=== PATIENT | male | born 1980 | race Two or more races ===

== ENCOUNTER 2024-10-17 00:05 | Emergency (ER) | payer MEDICAID, SELFPAY ==
[2024-10-17 00:20] VITALS: BP 164/91; PULSE 90; RESP 18; TEMP 36.9; O2SAT 96; BMI 25.4
--- NOTE | 2024-10-17 00:54 | PD.EDALCOH ---
ED Alcohol RME/HPI General Chief Complaint: Abdominal Pain Stated Complaint: ABDOMINAL PAIN, HEAVY ALCOHOL INTAKE Time Seen by Provider: 10/17/24 00:46 Arrival date/time: 10/17/24 00:05 44M with history of HTN, DM, and alcohol use presents to ED with 3 days of anxiety, trouble sleeping, and some intermittent ab pain. Limitations: no limitations Related Data Previous Rx's ?Medication ?Instructions ?Recorded blood sugar diagnostic (Accu-Chek #100 ea 06/02/23 Guide test strips) blood-glucose meter (Accu-Chek #1 ea 06/02/23 Guide Glucose Meter) gabapentin 100 mg capsule 100 mg PO QHS #30 caps 06/02/23 metformin 500 mg tablet 500 mg PO BID Diabetes Mellitus 06/09/23 Type 2 #60 tabs lancets 23 gauge (Accu-Chek #200 ea 06/23/23 Safe-T-Pro) losartan 25 mg tablet 25 mg PO QDAY HTN #30 tabs 06/23/23 pantoprazole 40 mg tablet,delayed 40 mg PO QDAY GERD #30 tabs 06/23/23 release (Protonix) Allergies Allergy/AdvReac Type Severity Reaction Status Date / Time No Known Allergies Allergy Verified 06/23/23 10:44 Review of Systems Review of Systems Systems Reviewed: All systems reviewed, normal except as documented Constitutional Constitutional: Reports system reviewed and no additional complaints, except as documented, Denies fever(s) and Denies headache(s) ENT Ears, Nose, Mouth, and Throat: Denies disequilibrium and Denies headache(s) Cardiovascular Cardiovascular: Reports system reviewed and no additional complaints, except as documented, Denies chest pain and Denies dyspnea Respiratory Respiratory: Reports system reviewed and no additional complaints, except as documented, Denies cough and Denies dyspnea Gastrointestinal Gastrointestinal: Reports system reviewed and no additional complaints, except as documented, Reports as per HPI, Reports abdominal pain, Denies nausea and Denies vomiting Neurologic Neurologic: Reports system reviewed and no additional complaints, except as documented, Denies confusion, Denies disequilibrium and Denies headache(s) Psychiatric Psychiatric: Reports as per HPI, Reports anxiety, Denies confusion and Reports other (insomnia) Past Medical History Past Medical History CARDIAC: Negative Congestive Heart Failure RESPIRATORY: Negative Chronic Obstructive Pulmonary Disease (COPD) GENITOURINARY: Negative Renal Disease ENDOCRINE: Negative Diabetes Mellitus Type 1 or Diabetes Mellitus Type 2 Social History SMOKING STATUS: Current some day smoker ED Exam General Limitations: Present no limitations General appearance: Present alert, in no apparent distress and anxious Head Head exam: Present atraumatic Eye Eye exam: Present normal appearance, PERRL and EOMI ENT ENT exam: Present normal exam, normal oropharynx and mucous membranes moist Neck Neck exam: Present normal inspection, full ROM and trachea midline Chest Chest inspection: Present normal inspection and symmetric chest wall rise Respiratory Respiratory exam: Present normal lung sounds bilaterally Cardiovascular Cardiovascular exam: Present regular rate, normal rhythm and normal heart sounds Abdominal Exam Abdominal exam: Present soft and normal bowel sounds Extremities Exam Extremities exam: Present normal inspection and full ROM Back Exam Back exam: Present normal inspection and full ROM Neurological Exam Neurological exam: Present alert, oriented X3 and CN II-XII intact Psychiatric Psychiatric exam: Present normal affect and normal mood Skin Skin exam: Present warm, dry, intact and normal color Course Quality Measures none Orders Category Date Time Status Diazepam [Valium] Med 10/17/24 00:47 Discontinued 10 mg PO X1 ONE Vital Signs Vital signs: Vital Signs Temperature 98.5 F 10/17/24 00:20 Pulse Rate 90 10/17/24 00:20 Respiratory Rate 18 10/17/24 00:20 Blood Pressure 164/91 H 10/17/24 00:20 Pulse Oximetry (%) 96 10/17/24 00:20 Oxygen Delivery Method Room Air 10/17/24 00:20 O2 at 96% on RA and WNLs Discharge Plan Plan Patient Disposition: HOME (Self Care) Disposition Comment: Stable Prescriptions/Referrals Prescriptions/Med Rec: No Action (DME) Accu-Chek Safe-T-Pro 23 gauge misc See Rx Instructions .Route Qty: 200 0RF Rx Instructions: Use As directed to test blood sugar BID or PRN losartan 25 mg tablet 25 mg PO QDAY MDD 25 mg Qty: 30 2RF pantoprazole [Protonix] 40 mg tablet,delayed release (DR/EC) 40 mg PO QDAY MDD 40 mg Qty: 30 1RF gabapentin 100 mg capsule 100 mg PO QHS MDD 100 mg Qty: 30 2RF (DME) blood-glucose meter [Accu-Chek Guide Glucose Meter] Misc See Rx Instructions .Route Qty: 1 0RF Rx Instructions: Test BID or as directed (DME) Accu-Chek Guide test strips Strip See Rx Instructions .Route Qty: 100 5RF Rx Instructions: Test BID or as Directed metformin 500 mg tablet 500 mg PO BID MDD 1000 mg Qty: 60 5RF Referrals: Edwin Shipley MD [Primary Care Provider] - In 1 week Problem List Clinical Impression: Alcohol withdrawal Patient/Caregiver Discharge Instructions Education Materials: Alcohol Withdrawal: What to Expect Additional Instructions: Please follow-up with PCP within 24-48 hours and return immediately if symptoms worsen. Stop drinking alcohol and take your DM and HTN meds. Print Language: Bhutanese Stand Alone Forms: Patient Portal Info Letter PA/INSTALLATION SUPERINTENDENT Supervising Physician PA/INSTALLATION SUPERINTENDENT Supervising Physician: Dr. Promise Bolanos MDM Narrative MDM Narrative: 44M with history of HTN, DM, and alcohol use presents to ED with 3 days of anxiety, trouble sleeping, and some intermittent ab pain. Physical exam reveals no ab tenderness. Normal pupil response and EOM. Patient is afebrile, alert, but anxious. Likely alcohol withdrawal. Valium relieved symptoms. Patient data External records reviewed:: [facility] previous records Clinical information provided by:: patient Social determinants that could affect healthcare access:: alcohol use Patient has the following chronic illnesses:: DM and HTN How is presenting disease/condition affected by chronic disease/condition?: exacerbated by Evaluation data The following diagnostics were reviewed and interpreted by me:: other (specify) (none) Lab and/or radiology exams considered but not ordered:: not ordered Interpretation Summary: n/a Medications / Prescriptions Medications or Prescriptions considered but not ordered:: ordered Medication administrations:: Medication Administration History Discontinued Medications Diazepam (Diazepam 5 Mg Tablet) 10 mg PO X1 ONE Stop: 10/17/24 00:48 Last Admin: 10/17/24 00:56 Dose: 10 mg Documented By: CVL above Consultations Consultation(s) initiated? (list below): No Diagnosis Differential diagnosis alcohol: alcohol withdrawal delirium, hypomagnesemia, alcohol intoxication, alcohol ketoacidosis, alcohol withdrawal syndrome and alcohol withdrawal seizure Most likely diagnosis given after review of the tests above:: alcohol withdrawal Admission Indicated Admission indicated?: not indicated Admission Request Was there a request for admission?: No Disposition Plan Disposition Plan: Discharge Discharge Attestation Discharge Attestation: The patient and all family members were given an opportunity to ask questions and understood the discharge instructions. Discharge instructions specifically effects, indications for sooner follow up or return to the emergency department, and the expected course of current diagnosis. Patient condition: Stable
[2024-10-17] MEDS: DIAZEPAM 5 MG TABLET 10 MG PO (00:56)
[2024-10-17 02:44] VITALS: BP 142/76; PULSE 76; RESP 18; TEMP 36.7; O2SAT 98
== END 2024-10-17 02:46 | disposition home or self-care (01) ==
PROVIDERS: Emergency Provider Emergency Medicine; PCP Family Medicine
DX: F10.939 Alcohol use, unspecified with withdrawal, unspecified (principal)
CPT/HCPCS: 99282; A9270

== ENCOUNTER 2024-10-17 10:28 | Emergency (ER) | payer MEDICAID, SELFPAY ==
[2024-10-17 10:31] VITALS: BMI 24.2
[2024-10-17 10:44] VITALS: BP 163/96; PULSE 87; RESP 18; TEMP 36.9; O2SAT 99
--- NOTE | 2024-10-17 11:37 | EKG_ITS ---
[facility], [place] Test Date: 2024-10-17 Pat Name: THUY PELAYO Department: Room: - Gender: Male [employer]: : 1980 Requested By: Selene oD ([facility]) Mini Order Number: [id number] Reading MD: Selene Do ([facility]) Mini Measurements Intervals [place] Rate: 83 P: 59 HI: 145 QRS: 57 QRSD: 96 T: 44 QT: 375 QTc: 442 Interpretive Statements SINUS RHYTHM No previous ECG available for comparison /store/S0/[id number].pdf
--- NOTE | 2024-10-17 11:37 | PD.EDRME ---
Rapid Medical Screening Exam RME Arrival date/time: 10/17/24 10:28 44-year-old male presents emergency department with complaints of anxiety, abdominal pain, trouble sleeping reports 2 weeks binge drinking. I have greeted and performed a focused initial assessment of this patient. Initial appropriate labs ordered at this time. A comprehensive ED assessment and evaluation of the patient and analysis of all test and completion of medical decision making process will be conducted by additional ED provider. Chief Complaint: General Adult/Misc Complain Time Seen by Provider: 10/17/24 11:05 Vital signs: Vital Signs Temperature 98.4 F 10/17/24 10:44 Pulse Rate 87 10/17/24 10:44 Respiratory Rate 18 10/17/24 10:44 Blood Pressure 163/96 H 10/17/24 10:44 Pulse Oximetry (%) 99 10/17/24 10:44 Oxygen Delivery Method Room Air 10/17/24 10:44
[2024-10-17 12:03] LABS: Basophils % (Auto) 1 % (0-2.5); Eosinophils % (Auto) 0 % (0-10); Hematocrit 44.4 % (41.0-53.0); Immature Granulocytes % (Auto) 0 % (0-0); Immature Granulocytes Auto 0.02 Thou/mm3 (0.00-0.00); Lymphocytes # (Auto) 1.4 Thou/mm3 (1.0-4.8); Lymphocytes % (Auto) 20 % (10-50); Mean Corpuscular Hemoglobin 31.6 pg (25.0-35.0); Mean Corpuscular Volume 88 fL (80-100); Monocytes # (Auto) 0.6 Thou/mm3 (0.0-0.8); Monocytes % (Auto) 9 % (0-12); Neutrophils # (Auto) 4.8 Thou/mm3 (1.8-7.7); Neutrophils % (Auto) 69 % (37-80); Nucleated Red Blood Cell % 0 /100 WBC (0); Platelet Count 294 Thou/mm3 (140-440); RDW Standard Deviation 39.8 fL (35.1-43.9); Red Blood Count 5.07 Miln/mm3 (4.50-5.90); White Blood Count 6.9 Thou/mm3 (3.8-10.6)
[2024-10-17 12:10] LABS: Prothrombin Time 11.3 Seconds (9.0-12.2)
[2024-10-17 12:16] LABS: Alanine Aminotransferase 40 U/L (10-49); Albumin, Serum 4.8 gm/dL (3.5-5.0); Albumin/Globulin Ratio 1.7 (1.2-2.2); Alcohol, Blood Medical < 10.0 mg/dL (0-10.0); Alkaline Phosphatase 85 U/L (46-116); Anion Gap 8 (7-16); Aspartate Amino Transferase 37 U/L (0-34); BUN/Creatinine Ratio 10 Ratio (12-20); Bilirubin,Total 1.2 mg/dL (0.3-1.2); Blood Urea Nitrogen 9 mg/dL (9-23); Calcium 9.2 mg/dL (8.3-10.6); Calcium (Corrected) 9.2 mg/dL (8.5-10.1); Carbon Dioxide 24.1 mMol/L (20.0-31.0); Chloride 101 mMol/L (98-107); Creatinine (Component) 0.9 mg/dL (0.6-1.3); Estimated Creatinine Clearance 92.5 mL/min (>60); Globulin 2.8 gm/dL (2.3-3.5); Glucose 123 mg/dL (74-106); Magnesium 2.3 mg/dL (1.6-2.6); Osmolality,Calculated 266 (275-295); Potassium 3.5 mMol/L (3.4-5.1); Sodium 133 mMol/L (136-145); Total Protein 7.6 gm/dL (5.7-8.2); Troponin I < 0.002 ng/mL (0.0-0.045); eGFR > 60 See Note
[2024-10-17 12:38] LABS: Collection Type, Urine Catheter; Squamous Epithelial Cell,Urine 0 /hpf (0-5)
[2024-10-17 12:50] LABS: Bacteria,Urine Rare; Bilirubin,Urine Negative (Negative); Blood,Urine Negative (Negative); Clarity,Urine Clear (Clear/Hazy); Color,Urine Lt-Yellow (Lt Yel-Yel); Glucose, Urine Negative (Negative); Ketones,Urine Negative (Negative); Leukocyte Esterase,Urine Negative (Negative); Nitrite,Urine Negative (Negative); Protein,Urine Negative (Neg - Trace); RBC,Urine 1 /hpf (0-3); Specific Gravity,Urine 1.014 (1.001-1.035); Urobilinogen,Urine Negative mg/dL (0.0-1.0); WBC,Urine 1 /hpf (0-5)
[2024-10-17 13:06] LABS: Amphetamine/Methamp Scrn,U Negative (Negative); Barbiturate Screen,Urine Negative (Negative); Benzodiazepines Screen,Urine Positive (Negative); Benzoylecgonine Screen, Ur Negative (Negative); Fentanyl Screen,Urine Negative (Negative); Opiate Screen,Urine Negative (Negative); THC Screen,Urine Negative (Negative)
[2024-10-17 14:49] VITALS: BP 174/78; PULSE 77; RESP 18; TEMP 36.6; O2SAT 99
--- NOTE | 2024-10-17 15:14 | PD.EDADULT ---
ED General RME/HPI General Chief complaint: General Adult/Misc Complain Stated complaint: GENERALIZED BODY ACHES X3 DAYS; DRINKS EVERYDAY Time Seen by Provider: 10/17/24 11:05 Arrival date/time: 10/17/24 10:28 RME / HPI RME / HPI narrative: 44-year-old male patient came in for evaluation regarding epigastric pain. Onset of symptoms for the last 3 days is worsening epigastric pain, described as burning-like sensation severity moderate. Last alcohol drink was 3 days ago. Denies any anxiety-like symptoms but complained that he is having generalized body weakness also. Denies any other complaints no medications taken prior to arrival. Related Data Previous Rx's ?Medication ?Instructions ?Recorded blood sugar diagnostic (Accu-Chek #100 ea 06/02/23 Guide test strips) blood-glucose meter (Accu-Chek #1 ea 06/02/23 Guide Glucose Meter) gabapentin 100 mg capsule 100 mg PO QHS #30 caps 06/02/23 metformin 500 mg tablet 500 mg PO BID Diabetes Mellitus 06/09/23 Type 2 #60 tabs lancets 23 gauge (Accu-Chek #200 ea 06/23/23 Safe-T-Pro) losartan 25 mg tablet 25 mg PO QDAY HTN #30 tabs 06/23/23 pantoprazole 40 mg tablet,delayed 40 mg PO QDAY GERD #30 tabs 06/23/23 release (Protonix) pantoprazole 40 mg tablet,delayed 40 mg PO QDAY #30 tabs 10/17/24 release (Protonix) Allergies Allergy/AdvReac Type Severity Reaction Status Date / Time No Known Allergies Allergy Verified 10/17/24 10:39 Review of Systems Review of Systems Narrative Review of Systems: Review of system reviewed and within normal limits except mentioned in HPI ED Exam Narrative Physical exam: VITAL SIGNS: Reviewed. GENERAL APPEARANCE: Alert and interactive, follows commands, no acute distress, HEAD AND FACE: Non-traumatic. ENT: PERRL, pink conjunctivitis, eyelid no trauma, Mucous membrane moist. NECK: Supple, nontender, no nuchal rigidity. CHEST: No tenderness, no crepitus, no paradoxical movement, no retractions. LUNGS: Clear, well ventilated, symmetric, no rales, no wheezing, no ronchi, no stridor, good breath sounds bilaterally. HEART: Regular rate, regular rhythm, no murmur, no gallops. ABDOMEN: Soft, positive bowel sounds, nondistended, no guarding, nontender, no rebound, no masses, RECTAL: Deferred. GENITAL: Deferred. NEUROLOGICAL: Gross motor function intact sensory function intact, Appropriate for age. MUSCULOSKELETAL: low back nontender, full range of motion. EXTREMITIES: Nontender, full range of motion. SKIN: Color pink, dry, no rash, no lacerations, no abrasions, no contusions. LYMPHATICS: Deferred. Course Quality Measures none Orders Category Date Time Status Bedside Blood Glucose NOW Care 10/17/24 11:37 Active Management Information Systems Director STAT Care 10/17/24 11:37 Active EKG (ED ONLY) *Do not use* NOW Care 10/17/24 11:37 Completed EKG (ED Only) Stat Exams 10/17/24 11:37 Draft Alcohol, Blood Medical Stat Lab 10/17/24 11:48 Completed CBC Stat Lab 10/17/24 11:48 Completed Comprehensive Metabolic Panel Stat Lab 10/17/24 11:48 Completed Drug Screen,Urine Stat Lab 10/17/24 12:26 Completed Magnesium Stat Lab 10/17/24 11:48 Completed Prothrombin Time with INR Stat Lab 10/17/24 11:48 Completed Troponin I Stat Lab 10/17/24 11:48 Completed Urinalysis Stat Lab 10/17/24 12:26 Completed Vital Signs Vital signs: Vital Signs Temperature 98.4 F 10/17/24 10:44 Pulse Rate 87 10/17/24 10:44 Respiratory Rate 18 10/17/24 10:44 Blood Pressure 163/96 H 10/17/24 10:44 Pulse Oximetry (%) 99 10/17/24 10:44 Oxygen Delivery Method Room Air 10/17/24 10:44 Discharge Plan Plan Patient Disposition: HOME (Self Care) Disposition Comment: stable Prescriptions/Referrals Prescriptions/Med Rec: New pantoprazole [Protonix] 40 mg tablet,delayed release (DR/EC) 40 mg PO QDAY Qty: 30 0RF No Action (DME) Accu-Chek Safe-T-Pro 23 gauge misc See Rx Instructions .Route Qty: 200 0RF Rx Instructions: Use As directed to test blood sugar BID or PRN losartan 25 mg tablet 25 mg PO QDAY MDD 25 mg Qty: 30 2RF pantoprazole [Protonix] 40 mg tablet,delayed release (DR/EC) 40 mg PO QDAY MDD 40 mg Qty: 30 1RF gabapentin 100 mg capsule 100 mg PO QHS MDD 100 mg Qty: 30 2RF (DME) blood-glucose meter [Accu-Chek Guide Glucose Meter] Misc See Rx Instructions .Route Qty: 1 0RF Rx Instructions: Test BID or as directed (DME) Accu-Chek Guide test strips Strip See Rx Instructions .Route Qty: 100 5RF Rx Instructions: Test BID or as Directed metformin 500 mg tablet 500 mg PO BID MDD 1000 mg Qty: 60 5RF Referrals: No Primary/Family,Physician [Primary Care Provider] - In 1 week Problem List Clinical Impression: Gastritis, Alcoholism, chronic Patient/Caregiver Discharge Instructions Discharge Activity: activity as tolerated Education Materials: Alcohol Addiction Additional Instructions: Thank you for the opportunity for serving you today. You are stable for discharged . You are advised to: Follow-up with your PCP in 1 to 2 days Return to ED for worsening of symptoms Increase oral fluids Take medication as prescribed Please stop drinking alcohol Print Language: Slovenian Stand Alone Forms: [employer] Info., Patient Portal Info Letter MDM Patient Acuity Narrative: 44-year-old male patient came in for evaluation regarding epigastric pain. Onset of symptoms for the last 3 days is worsening epigastric pain, described as burning-like sensation severity moderate. Last alcohol drink was 3 days ago. Denies any anxiety-like symptoms but complained that he is having generalized body weakness also. Denies any other complaints no medications taken prior to arrival. Patient's workup today all came back unremarkable. Patient was sent home on Protonix. Patient was advised to stop drinking alcohol. There is no sign of alcohol withdrawal symptoms at this time. Medical Records reviewed Medical Records additional comments: None Meds/Rx considered, not ordered describe: None Labs/Rad/Tests considered, not ordered Describe: None EKG EKG Interpretation(s): EKG as interpreted by me shows sinus rhythm, ventricular rate of 83 bpm, no ST segment elevation or depression noted. Labs Lab(s) Interpretation(s): See results MDM Medication Administration(s) None Diagnosis Differential Diagnosis ED Complaint MDM: Epigastric pain gastritis GERD, chronic alcoholism Diagnoses ruled out: Gastritis, chronic alcoholism
== END 2024-10-17 15:23 | disposition home or self-care (01) ==
PROVIDERS: Nurse Practitioner Primary Care; Emergency Provider Emergency Medicine
DX: K29.70 Gastritis, unspecified, without bleeding (principal); F10.20 Alcohol dependence, uncomplicated; Y90.0 Blood alcohol level of less than 20 mg/100 ml
CPT/HCPCS: 36415; 80053; 80307; 80320; 81001; 83735; 84484; 85025; 85610; 93005; 99283; G0480

== ENCOUNTER 2025-04-29 17:14 | Emergency (ER) | payer MEDICAID, SELFPAY ==
[2025-04-29 17:43] VITALS: BP 159/94; PULSE 84; RESP 16; TEMP 37; O2SAT 98; BMI 28.6
--- NOTE | 2025-04-29 17:53 | PD.EDRME ---
Rapid Medical Screening Exam [facility] Arrival date/time: 04/29/25 17:14 45-year-old male with a history of hypertension and type 2 diabetes presents to the emergency room with a chief complaint of a pilonidal cyst. Patient states he seen his primary care provider and was prescribed antibiotics but began to have a lot of diarrhea and stopped taking them. Patient states he had nonstop diarrhea for the last 5 days and is having weakness. I have greeted and performed a focused initial assessment of this patient. A comprehensive ED assessment and evaluation of the patient, analysis of all test results, and completion of the medical decision making process will be conducted by additional ED providers. Chief Complaint: Abdominal Pain Time Seen by Provider: 04/29/25 17:35 Vital signs: Vital Signs Temperature 98.6 F 04/29/25 17:43 Pulse Rate 84 04/29/25 17:43 Respiratory Rate 16 04/29/25 17:43 Blood Pressure 159/94 H 04/29/25 17:43 Pulse Oximetry (%) 98 04/29/25 17:43 Oxygen Delivery Method Room Air 04/29/25 17:43 Vital signs reviewed by provider: No Exam: Soft nontender abdomen Clear bilateral lung sounds Clinical Impression: Pilonidal cyst/abscess
[2025-04-29 19:25] LABS: Collection Type, Urine Clean Catch; Squamous Epithelial Cell,Urine 0 /hpf (0-5)
[2025-04-29 19:30] LABS: Basophils # (Auto) 0.0 Thou/mm3 (0.0-0.2); Basophils % (Auto) 0 % (0-2.5); Eosinophils # (Auto) 0.1 Thou/mm3 (0.0-0.5); Eosinophils % (Auto) 1 % (0-10); Hematocrit 42.2 % (41.0-53.0); Hemoglobin 15.2 g/dL (13.5-16.0); Immature Granulocytes Auto 0.03 Thou/mm3 (0.00-0.00); Lymphocytes # (Auto) 2.0 Thou/mm3 (1.0-4.8); Lymphocytes % (Auto) 28 % (10-50); Mean Corpuscular HGB Conc 36.0 g/dl (31.0-37.0); Mean Corpuscular Hemoglobin 31.3 pg (25.0-35.0); Mean Corpuscular Volume 87 fL (80-100); Monocytes # (Auto) 0.4 Thou/mm3 (0.0-0.8); Monocytes % (Auto) 6 % (0-12); Neutrophils # (Auto) 4.6 Thou/mm3 (1.8-7.7); Neutrophils % (Auto) 64 % (37-80); Nucleated Red Blood Cell # 0.00 Thou/mm3 (0.00-0.00); Nucleated Red Blood Cell % 0 /100 WBC (0); Platelet Count 295 Thou/mm3 (140-440); RDW Standard Deviation 38.7 fL (35.1-43.9); Red Blood Count 4.85 Miln/mm3 (4.50-5.90); White Blood Count 7.2 Thou/mm3 (3.8-10.6)
[2025-04-29 19:36] LABS: Bilirubin,Urine Negative (Negative); Blood,Urine Negative (Negative); Clarity,Urine Clear (Clear/Hazy); Color,Urine Colorless (Lt Yel-Yel); Glucose, Urine Negative (Negative); Ketones,Urine Negative (Negative); Leukocyte Esterase,Urine Negative (Negative); Nitrite,Urine Negative (Negative); PH,Urine 5.5 (5.0-7.0); Protein,Urine Negative (Neg - Trace); RBC,Urine 1 /hpf (0-3); Specific Gravity,Urine 1.012 (1.001-1.035); Urobilinogen,Urine Negative mg/dL (0.0-1.0); WBC,Urine < 1 /hpf (0-5)
[2025-04-29 19:51] LABS: Alanine Aminotransferase 30 U/L (10-49); Albumin, Serum 4.6 gm/dL (3.5-5.0); Albumin/Globulin Ratio 1.9 (1.2-2.2); Alkaline Phosphatase 78 U/L (46-116); Anion Gap 12 (7-16); Aspartate Amino Transferase 22 U/L (0-34); BUN/Creatinine Ratio 10 Ratio (12-20); Bilirubin,Total 0.4 mg/dL (0.3-1.2); Blood Urea Nitrogen 10 mg/dL (9-23); Calcium 9.2 mg/dL (8.3-10.6); Calcium (Corrected) 9.2 mg/dL (8.5-10.1); Carbon Dioxide 23.2 mMol/L (20.0-31.0); Chloride 103 mMol/L (98-107); Creatinine (Component) 1.0 mg/dL (0.6-1.3); Estimated Creatinine Clearance 88.0 mL/min (>60); Globulin 2.4 gm/dL (2.3-3.5); Glucose 186 mg/dL (74-106); Lipase 32 U/L (12-53); Osmolality,Calculated 279 (275-295); Potassium 3.3 mMol/L (3.4-5.1); Sodium 138 mMol/L (136-145); Total Protein 7.0 gm/dL (5.7-8.2); eGFR > 60 See Note
[2025-04-29 21:58] VITALS: BP 151/95; PULSE 78; RESP 17; TEMP 36.6; O2SAT 97
--- NOTE | 2025-04-29 23:36 | EDNOTE_ITS ---
ED Abdominal Pain RME/HPI General Chief Complaint: Abdominal Pain Stated complaint: ABD PAIN, BACK PAIN,DIARRHEA Time seen by provider: 04/29/25 17:35 Arrival date/time: 04/29/25 17:14 RME / HPI RME / HPI narrative: 04/29/25 17:14 45-year-old male with a history of hypertension and type 2 diabetes presents to the emergency room with a chief complaint of a pilonidal cyst. Patient states he seen his primary care provider and was prescribed antibiotics but began to have a lot of diarrhea and stopped taking them. Patient states he had nonstop diarrhea for the last 5 days and is having weakness. I have greeted and performed a focused initial assessment of this patient. A comprehensive ED assessment and evaluation of the patient, analysis of all test results, and completion of the medical decision making process will be conducted by additional ED providers. DR. VALENTINO MAIN ED EVALUATION: Patient presenting with ongoing diarrhea x 2 weeks since having started C lindamycin for cellulitis/pustule. No fever, although does report nausea without vomiting, and diffuse lower abdominal pain/discomfort. PMH: Pilonidal cyst/abscess PSH: Non-contributory Allergies: None Social: Positve Alcohol, Negative Tobacco or illicit drug abuse Exam: Soft nontender abdomen Clear bilateral lung sounds Impression: Pilonidal cyst/abscess Related Data Previous Rx's ?Medication ?Instructions ?Recorded blood sugar diagnostic (Accu-Chek #100 ea 06/02/23 Guide test strips) blood-glucose meter (Accu-Chek #1 ea 06/02/23 Guide Glucose Meter) gabapentin 100 mg capsule 100 mg PO QHS #30 caps 06/02 metformin 500 mg tablet 500 mg PO BID Diabetes Melli tus 06/09/23 Type 2 #60 tabs lancets 23 gauge (Accu-Chek #200 ea 06/23/23 Safe-T-Pro) losartan 25 mg tablet 25 mg PO QDAY HTN #30 tabs 1 08/24/22 pantoprazole 40 mg tablet,delayed 40 mg PO QDAY GERD # 30 tabs 06/23/23 release (Protonix) pantoprazole 40 mg tablet,delayed 40 mg PO QDAY #30 ta bs 04/17/25 release (Protonix) Allergies Allergy/AdvReac Type Severity Reaction Status Date / Time No Known Allergies Allergy Verified 04/29/25 17:23 Review of Systems Review of Systems Systems Reviewed: All systems reviewed, normal except as documented Past Medical History Social History SMOKING STATUS: Current some day smoker ED Exam Narrative Physical exam: GEN. APPEARANCE: The patient is alert awake oriented X-3 under no distress, lying down comfortably, does not look ill/toxic, c/o abdominal pain. Patient has good eye contact. Patient is cooperative. VITALS: All vitals were reviewed and the pulse ox is 97%, which is normal according to my interpretation HEENT: Normocephalic, atraumatic and nontender. Pupils are equal and reactive. Oral mucosa is moist. NECK: Supple, nontender, no meningismus, no JVD. There is no thyromegaly and no lymphadenopathy. CHEST: Nontender on palpation no deformity and no crepitus. CARDIOVASCULAR: Mild tachycardia, no murmur or gallop rub or extra beats. LUNGS: Clear to auscultation bilaterally with symmetrical chest rise. No laboring tachypnea or wheezing. No intercostal subcostal retraction. No rales and no rhonchi. ABDOMEN: Soft, flat, mildly tender diffusely, no gross peritoneal findings., no guarding or rebound tenderness. There are no abnormal masses palpated. No pulsatile masses or bruits. Active and normal bowel sounds. EXTREMITIES: Normal inspection and palpation. No edema. No cyanosis. Patient is able to move all 4 extremities well SKIN: Warm and dry, no rashes noted. MUSCULOSKELETAL: No lumbar or midline bony tenderness. There is no CVA tenderness. No paraspinal muscle spasm or tenderness. NEURO: Cranial nerves II through XII grossly intact. There are no focal neurologic deficits noted. GCS is 15 PSYCHIATRIC: Patient is in normal mood and affect, cooperative. LYMPHATICS: No major lymphadenopathy noted. Course Quality Measures none Orders Category Date Time Status CT Screening NOW Care 04/30/25 01:[address] abdomen pelvis w con Stat Exams 04/30/25 01:05 Taken CBC Stat Lab 04/29/25 18:50 Completed CMP [Comprehensive Metabolic Panel] Stat Lab 04/29/25 18:50 Completed Clostridium Difficile PCR Urgent Lab 04/29/25 23:45 Received Lipase Stat Lab 04/29/25 18:50 Completed UA [Urinalysis] Stat Lab 04/29/25 19:10 Completed Urine Culture Stat Lab 04/29/25 19:10 Received Hyoscyamine Sulf [Levsin] Med 04/29/25 23:39 Discontinued 0.125 mg PO X1 ONE Potassium Chloride [K-Dur] Med 04/30/25 00:05 Discontinued 40 meq PO X1 ONE Prochlorperazine Inj [Compazine Inj] Med 04/29/25 23:58 Discontinued 10 mg IV X1 ONE Sodium Chloride 0.9% 1000 ml [Ns] 1,000 ml Med 04/29/25 23:39 Discontinued IV 999 mls/hr cefTRIAXone [Rocephin] 1,000 mg Med 04/29/25 17:53 Discontinued Lidocaine 1% 20 ml [Xylocaine 1% 20 ML] 2.1 ml IM X1 cefTRIAXone/D5w 1gm IV premix [Rocephin/D5w 1gm IV Med 04/30/25 03:50 Active premix] 1 gm in 50 ml IV X1 metroNIDAZOLE/NS 500 MG IVPB [Flagyl 500 mg IV] Med 04/30/25 03:49 Active 500 mg in 100 ml IV X1 Vital Signs Vital signs: Vital Signs Temperature 98.6 F 04/29/25 17:43 Pulse Rate 84 04/29/25 17:43 Respiratory Rate 16 04/29/25 17:43 Blood Pressure 159/94 H 04/29/25 17:43 Pulse Oximetry (%) 98 04/29/25 17:43 Oxygen Delivery Method Room Air 04/29/25 17:43 Abdominal Pain MDM MDM Narrative MDM Narrative:: Scribe Attestation: Rossy Jara am scribing for and in the presence of Dr. Valentino. Provider Notation: Although this document has been carefully reviewed, there may still be some phonetic and other typographical errors. These errors are purely grammatical due to imperfections in the software program and should not be construed in any way to compromise the substance of the patient's medical care during this visit. Patient presenting with ongoing diarrhea x 2 weeks since having started Clindamycin for cellulitis/pustule. No fever, although does report nausea without vomiting, and diffuse lower abdominal pain/discomfort. Please see PE findings. Laboratory markers demonstrate a normal WBC. No anemia or thrombocytopenia. Serum chemistries demonstrate slgihtly low Potassium of 3.3, normal renal function, midly elevated blood sugar of 186. UA without evidence of infection. Patient was hydrated to correct volume deficit, administered low-dose narcotic analgesics/anti-emetics with mild to moderate relief. Abdomen/Pelvis CT demonstrates evidence of sigmoid diverticulitis in addition to possibility of cystitis and enteritis, laslty noted enlarged prostate and hypodense liver lesion. Patient abruptly decided to leave the hospital, and although not toxic and without signs of sepsis, patient will be placed on Augmentin, Promethazine, and Hydrocodone, advised F/U with GI specialist, precautionary instruction issued. Patient data External records reviewed:: [facility] previous records (Reviewed prior ED records from 10/17/24. Patient was seen for Alcoholism, chronic.) Clinical information provided by:: patient Social determinants that could affect healthcare access:: alcohol use Patient has the following chronic illnesses:: None reported How is presenting disease/condition affected by chronic disease/condition?: no chronic disease Evaluation data The following diagnostics were reviewed and interpreted by me:: lab results and radiology exam(s) Lab and/or radiology exams considered but not ordered:: None Interpretation Summary: RADIOLOGY Abdomen/Pelvis CT: Findings: The lung bases are clear. The gallbladder, pancreas, spleen, kidneys and adrenals are unremarkable. A few hypodense liver lesions, the largest in segment 7 measures 1.2 cm. No evidence of bowel obstruction. The appendix is within normal limits. There is no mesenteric or retroperitoneal adenopathy. The urinary bladder is nondistended, limited evaluation, prominent urinary bladder wall. There is no free fluid or free air. Degenerative changes of the imaged portions of the spine. No acute fractures. A few scattered air-fluid levels in the small bowel without dilation or wall thickening. Focal thickening of the proximal sigmoid colon associated with peripheral fat stranding, no perforation, no collections. Enlarged prostate. Impression: 1. Acute diverticulitis of the proximal sigmoid colon. 2. Possible cystitis. 3. Possible mild enteritis. 4. Enlarged prostate. Consider correlation with PSA. 5. Hypodense liver lesions, consider correlation with MRI for characterization Medications / Prescriptions Medications or Prescriptions considered but not ordered:: None Medication administrations:: Medication Administration History Metronidazole (Flagyl 500 Mg Iv) 500 mg in 100 mls @ 100 mls/hr IV X1 ONE Stop: 04/30/25 04:48 Ceftriaxone Sodium/Dextrose (Rocephin/D5w 1gm Iv Premix) 1 gm in 50 mls @ 100 mls/hr IV X1 ONE Stop: 04/30/25 04:19 Discontinued Medications Ceftriaxone Sodium 1,000 mg/ (Lidocaine HCl 2.1 ml) 0 mg IM X1 ONE Stop: 04/29/25 17:54 Last Admin: 04/29/25 18:10 Dose: Not Given Documented By: OA Non-Admin Reason: Patient Refused Hyoscyamine (Hyoscyamine Sulf 0.125 Mg Tab.Subl) 0.125 mg PO X1 ONE Stop: 04/29/25 23:40 Last Admin: 04/30/25 00:13 Dose: Not Given Documented By: BOOM Non-Admin Reason: Cancelled by Provider Sodium Chloride (Ns) 1,000 mls @ 999 mls/hr IV .Q1H1M ONE Stop: 04/30/25 00:39 Last Infusion: 04/30/25 02:59 Dose: Infused Documented By: Admin: 04/30/25 00:03 Dose: 999 mls/hr Documented By: DT Potassium Chloride (Potassium Chloride 20 Meq Tabcr) 40 meq PO X1 ONE Stop: 04/30/25 00:06 Last Admin: 04/30/25 00:51 Dose: 40 meq Documented By: DT Prochlorperazine Edisylate (Prochlorperazine Inj 5 Mg/Ml Vial 2 Ml) 10 mg IV X1 ONE; Protocol Stop: 04/29/25 23:59 Last Admin: 04/30/25 00:52 Dose: 10 mg Documented By: DT See above if any Consultations Consultation(s) initiated? (list below): Yes Consultation #1 (Physician, Specialty, Details): Discussed with Hospitalist Team for admission. Reviewed the patient?s HPI, PMHx, lab and/or radiology results. Discussed treatment plan. Will consult an admission to the hospitalist. Time: 01:13 Diagnosis Differential diagnosis abdominal pain: abdominal pain, diverticulitis and gastroenteritis Most likely diagnosis given after review of the tests above:: Sigmoid diverticulitis Admission Indicated Admission indicated?: indicated Explain why admission is indicated or not indicated:: Sigmoid diverticulitis Admission Request Was there a request for admission?: Yes Admission Attestation Admission request attestation: Discussed case with [] from Hospitalist service regarding admission. Discussed patients ED course, exam findings, labs, and radiology results. The Hospitalist [agrees,declines] to accept the patient for admission. Disposition Plan Disposition Plan: Discharge Discharge Attestation Discharge Attestation: The patient and all family members were given an opportunity to ask questions and understood the discharge instructions. Discharge instructions specifically effects, indications for sooner follow up or return to the emergency department, and the expected course of current diagnosis. Patient condition: Stable Discharge Plan Plan Patient Disposition: HOME (Self Care) Prescriptions/Referrals Prescriptions/Med Rec: No Action (DME) Accu-Chek Safe-T-Pro 23 gauge misc See Rx Instructions .Route Qty: 200 0RF Rx Instructions: Use As directed to test blood sugar BID or PRN losartan 25 mg tablet 25 mg PO QDAY MDD 25 mg Qty: 30 2RF pantoprazole [Protonix] 40 mg tablet,delayed release (DR/EC) 40 mg PO QDAY MDD 40 mg Qty: 30 1RF gabapentin 100 mg capsule 100 mg PO QHS MDD 100 mg Qty: 30 2RF (DME) blood-glucose meter [Accu-Chek Guide Glucose Meter] Misc See Rx Instructions .Route Qty: 1 0RF Rx Instructions: Test BID or as directed (DME) Accu-Chek Guide test strips Strip See Rx Instructions .Route Qty: 100 5RF Rx Instructions: Test BID or as Directed metformin 500 mg tablet 500 mg PO BID MDD 1000 mg Qty: 60 5RF pantoprazole [Protonix] 40 mg tablet,delayed release (DR/EC) 40 mg PO QDAY Qty: 30 0RF Referrals: Edwin Shipley MD [Primary Care Provider, Family Practice] - In 1 week Problem List Clinical Impression: Sigmoid diverticulitis Patient/Caregiver Discharge Instructions Print Language: Albanian Stand Alone Forms: [employer] Award Info., Patient Portal Info Letter
[2025-04-30 00:02] VITALS: BP 158/110; PULSE 85; RESP 14; TEMP 37; O2SAT 99
[2025-04-30] MEDS: SODIUM CHLORIDE 0.9% 1000 ML 1,000 ML 999 ML IV (00:03)
[2025-04-30] MEDS: PROCHLORPERAZINE INJ 5 MG/ML VIAL 2 ML 10 MG IV (00:52)
--- NOTE | 2025-04-30 01:05 | XR_ITS ---
Examination: CT abdomen with intravenous contrast CT pelvis with intravenous contrast 2-D coronal reconstructions 2-D sagittal reconstructions Date and time of exam: April 30, 2025, 0145 hours INDICATIONS: Abdominal pain radiating to the back, diarrhea today. CTDI: vol (mGy) 7.27 DLP: (mGycm) 441 Technique: Multiple axial sections of the abdomen and pelvis have been obtained. 64 slice high-resolution scanner used. 3 mm axial sections have been obtained, post intravenous injection 60 cc [id number] 2-D sagittal, coronal reconstructions obtained. Low dose protocols were performed. One or more of the following dose reduction techniques were used; automated exposure control, adjustment of the mA and/or KV according to patient size, use of iterative reconstruction technique. Findings: Multiple small liver cysts No gallstones Spleen not enlarged No pancreatic or adrenal mass No renal or ureteral calculi, no hydronephrosis Normal appendix Colonic diverticulosis Mild diverticulitis sigmoid colon, no peridiverticular abscess Mild prostatomegaly Contracted urinary bladder, mild urinary bladder wall thickening IMPRESSION: Multiple probable liver cysts, recommend hepatic sonography follow-up No renal or ureteral calculi, no hydronephrosis Normal appendix Mild acute diverticulitis sigmoid colon no peridiverticular abscess Contracted urinary bladder with mild urinary bladder wall thickening, consider cystitis
--- NOTE | 2025-04-30 02:56 | PRELIM_ITS ---
CT scan of the abdomen and pelvis with intravenous contrast (axial sections with sagittal and coronal reformats) April 30, 2025 0145 hours Clinical History: Rule out colitis. Comparison: None available at the time of this report. Findings: The lung bases are clear. The gallbladder, pancreas, spleen, kidneys and adrenals are unremarkable. A few hypodense liver lesions, the largest in segment 7 measures 1.2 cm. No evidence of bowel obstruction. The appendix is within normal limits. There is no mesenteric or retroperitoneal adenopathy. The urinary bladder is nondistended, limited evaluation, prominent urinary bladder wall. There is no free fluid or free air. Degenerative changes of the imaged portions of the spine. No acute fractures. A few scattered air-fluid levels in the small bowel without dilation or wall thickening. Focal thickening of the proximal sigmoid colon associated with peripheral fat stranding, no perforation, no collections. Enlarged prostate. Impression: 1. Acute diverticulitis of the proximal sigmoid colon. 2. Possible cystitis. 3. Possible mild enteritis. 4. Enlarged prostate. Consider correlation with PSA. 5. Hypodense liver lesions, consider correlation with MRI for characterization. Report Electronically Signed By: Barry Mtz 04/30/2025 2:55:45 AM [EST]
[2025-04-30 02:58] VITALS: BP 153/97; PULSE 73; RESP 18; TEMP 36.5; O2SAT 98
[2025-04-30] MEDS: AMOXICILLIN/POT CLAV 875 TABLET 1 TAB PO (04:20)
[2025-04-30 04:24] VITALS: BP 135/85; PULSE 85; RESP 14; TEMP 37; O2SAT 99
[2025-04-30 12:07] LABS: Clostridium Difficile PCR Negative (Negative)
[2025-04-30 12:47] LABS: Campylobacter PCR Negative (Negative); Salmonella Species PCR Negative (Negative); Shiga Toxin PCR Negative (Negative); Shigella Species PCR Negative (Negative)
== END 2025-04-30 04:25 | disposition home or self-care (01) ==
PROVIDERS: Nurse Practitioner Family; Emergency Provider Emergency Medicine; PCP Family Medicine
DX: K57.32 Diverticulitis of large intestine without perforation or abscess without bleeding (principal); E11.9 Type 2 diabetes mellitus without complications; I10 Essential (primary) hypertension
CPT/HCPCS: 36415; 74177; 80053; 81001; 83690; 85025; 87015; 87045; 87046; 87086; 87493; 87505; 87899; 96360; 96361; 99283; A4649; J0780; J7030; Q9967; A9270